=== PATIENT | male | born 1955 | race Caucasian/White ===

== ENCOUNTER → 2019-11-20 08:52 | Outpatient (BNVA) | payer MEDICARE, MEDICAID, SELFPAY | PROVIDERS: PCP Family Medicine; Referring Provider Family Medicine; Visit Provider Specialist | DX: G40.909 Epilepsy, unspecified, not intractable, without status epilepticus (principal); I20.0 Unstable angina | CPT/HCPCS: 99205 ==

== ENCOUNTER 2019-12-03 08:59 | Outpatient (CLI) | payer MEDICARE, MEDICAID, SELFPAY ==
--- NOTE | 2019-12-03 09:32 | NMCV_ITS ---
NM ariana perf SPECT r/s* [id number] Norberto Oreilly Age: 64 Gender: M : 1955 Exam Date: 12/03/2019 10:30 Ordering Phys: Josefina Etienne MD Technologist: AUGUSTO Feldman Exam Location: [facility] Indications: Unstable angina STRESS TEST [facility] IMAGE PROTOCOL Rest/Stress 1 Lexiscan Day Radiopharmaceutical Dose (mCi) Administration Site Administered by Rest: Tc-99m 10.8 IV AUGUSTO Coats Sestamibi Stress:Tc-99m 32.6 IV AUGUSTO Feldman Sestamiricardo Rest: 03-Dec-2019 60 Discovery 630 Stress: 03-Dec-2019 45 Discovery 630 0.4mg Lexiscan. Images obtained in supine and prone position. SPECT RESULTS Technical Quality: Good Raw Data Analysis: Normal Image Corrections: No attenuation or motion correction applied Summed Stress Score: 0 Summed Rest Score: 0 Summed Difference Score: 0 PERFUSION FINDINGS SPECT images demonstrate homogeneous tracer distribution throughout the myocardium. FUNCTIONAL RESULTS (calculated via Gated SPECT) Stress Image LV EF (%): 74 Stress EDV (mL):57 TID: 1 Stress ESV (mL):15 FUNCTIONAL FINDINGS: The left ventricle is normal in size. Transient Ischemia Dilatation of 1. There is normal left ventricular systolic function. The left ventricular ejection fraction is normal with a value of 74%. There is normal left ventricular wall thickening. Normal end-diastolic and end-systolic volumes. IMPRESSIONS 1. Myocardial perfusion imaging is normal. 2. Overall left ventricular systolic function is normal without regional wall motion abnormalities. 3. The left ventricular ejection fraction is normal with a value of 74%. 4. This study suggests a low likelihood of angiographically significant coronary artery disease. Marlin Plummer MD (Electronically Signed) Final Date: 03 December 2019 16:54 S
[2019-12-03 09:58] VITALS: BMI 30.4
[2019-12-03] MEDS: regadenoson 0.4 Mg/5 ml Syringe IVP (11:17)
[2019-12-03 11:19] VITALS: BP 163/94; PULSE 79
--- NOTE | 2019-12-03 11:45 | ECG_ITS ---
[facility] Test Date: 2019-12-03 Pat Name: Norberto Oreilly Department: Room: Gender: Male Maintenance Porter: : 1955 Requested By: Josefina Etienne Order Number: [id number] Bowers MD: Danis Vang M.D. Interpretive Statements NAME OF STUDY: LEXISCAN SESTAMIBI STRESS TEST INDICATION: Shortness of Breath, NOTE: Please note that this is the electrocardiogram portion of the Lexiscan/Sestamibi stress test. The perfusion scan will be documented separately. DATA: Baseline heart rate was 66 beats per minute. Baseline blood pressure was 166/94 millimeters of mercury. Target heart rate was 155. Maximum heart rate achieved was 86, which was 55 % of the predicted target heart rate. Maximum blood pressure was 169/111 millimeters of mercury. The reason for ending the test was completion of the protocol. The patient did not experience any symptoms. ELECTROCARDIOGRAM: BASELINE: Sinus rhythm. Normal axis. Otherwise, no ST-T changes suggestive of ischemia noted. No arrhythmia noted. EXERCISE: After Lexiscan injection, no ST-T changes suggestive of ischemic noted. No arrhythmia noted. CONCLUSION: Please note due to baseline abnormality of the EKG specificity and sensitivity of the EKG portion of LexiScan MIBI stress test will be low 1. EKG not suggestive of ischemia 2. Lexiscan injection unremarkable. 3. Perfusion scan will be documented separately. Electronically Signed On 12-08-2019 12:15:55 CDT by Danis Vang M.D. [email or web address]
== END 2019-12-03 09:00 | disposition home or self-care (01) ==
LOC: RAD 09:01
PROVIDERS: PCP Family Medicine; Visit Provider Specialist
DX: I20.0 Unstable angina (principal)
CPT/HCPCS: 78452; 93017; A9500; J2785

== ENCOUNTER → 2023-02-06 14:18 | Outpatient (BNVA) | payer MEDICARE, MEDICAID, SELFPAY | PROVIDERS: PCP Family Medicine; Referring Provider Nurse Practitioner Family; Visit Provider Orthopaedic Surgery | DX: M51.17 Intervertebral disc disorders with radiculopathy, lumbosacral region (principal); M89.8X1 Other specified disorders of bone, shoulder | CPT/HCPCS: 72100; 99204 ==

== ENCOUNTER 2023-02-09 06:00 | Outpatient (RCR) | payer MEDICARE, MEDICAID, SELFPAY | END 2023-03-10 23:59 | disposition home or self-care (01) | LOC: WPT 06:00 | PROVIDERS: Visit Provider Orthopaedic Surgery | DX: M25.512 Pain in left shoulder (principal) | CPT/HCPCS: 97110; 97163; 97530 ==

== ENCOUNTER 2023-03-19 16:00 | Outpatient (RCR) | payer MEDICARE, MEDICAID, SELFPAY | END 2023-04-10 23:59 | disposition home or self-care (01) | LOC: WPT 16:00 | PROVIDERS: Visit Provider Orthopaedic Surgery | DX: M25.512 Pain in left shoulder (principal) | CPT/HCPCS: 97110; 97530 ==

== ENCOUNTER 2025-01-27 14:07 | Oncology outpatient (recurring) (ONCR) | payer OTHER, MEDICAID, SELFPAY ==
[2025-01-13 10:19] LABS: Hematocrit 39.7 % (37-53); Hemoglobin 13.80 g/dL (11.27-16.99); Mean Corpuscular HGB Conc 34.8 g/dL (30-55); Mean Corpuscular Hemoglobin 34.2 pg (27-33); Mean Corpuscular Volume 98.3 fl (82-101); Nucleated Red Blood Cells % 0 %; Platelet Count 225 10^3/cmm (157-399); Red Blood Count 4.04 10^6/uL (3.85-5.65); White Blood Count 8.65 10^3/uL (3.29-11.43)
[2025-01-13 10:33] LABS: Alanine Aminotransferase 23 U/L (0-41); Albumin Level 4.1 g/dL (3.5-5.2); Alkaline Phosphatase 128 U/L (40-130); Anion Gap 14.1 (5-19); Aspartate Amino Transferase 32 U/L (0-40); Blood Urea Nitrogen 16 mg/dL (8-23); Calcium 9.7 mg/dL (8.5-10.5); Carbon Dioxide 26 mmol/L (22-29); Chloride 106 mmol/L (98-107); Creatinine Clr Calc Pharmacy 70.2061; Globulin 3.9 g/dL (1.3-4.6); Glucose 130 mg/dL (65-115); Osmolality Calculated 297 mOsm/kg (285-295); Potassium 4.1 mmol/L (3.5-5.1); Sodium 142 mmol/L (136-145); Total Protein 8.0 g/dL (6.6-8.7)
[2025-01-13 11:01] LABS: Ferritin 160 ng/mL (30-400); Iron 119 ug/dL (59-158); Total Iron Binding Capacity 267 mcg/dl; Unsaturated Iron Binding 148 ug/dL (112-347)
[2025-01-14 02:21] LABS: Vitamin B12 497 pg/mL (232-1245)
[2025-01-14 07:09] LABS: PROTEIN, TOTAL 7.5 g/dL (6.1-8.1)
[2025-01-15 20:08] LABS: ALPHA 1 GLOBULIN 0.3 g/dL (0.2-0.3); ALPHA 2 GLOBULIN 0.8 g/dL (0.5-0.9); BETA 1 GLOBULIN 0.4 g/dL (0.4-0.6); BETA 2 GLOBULIN 0.5 g/dL (0.2-0.5)
== END 2025-02-08 23:59 | disposition home or self-care (01) ==
PROVIDERS: PCP Nurse Practitioner Family; Visit Provider Internal Medicine Medical Oncology
DX: D64.9 Anemia, unspecified (principal); E83.19 Other disorders of iron metabolism; F17.220 Nicotine dependence, chewing tobacco, uncomplicated; R19.7 Diarrhea, unspecified; W57.XXXA Bitten or stung by nonvenomous insect and other nonvenomous arthropods, initial encounter
CPT/HCPCS: 36415; 80053; 81256; 82607; 82728; 82746; 83540; 83550; 84155; 84165; 85025; 86334; 99205; 99213